=== PATIENT | male | born 2000 | race Caucasian/White ===

== ENCOUNTER 2024-06-24 09:03 | Emergency (ER) | payer BC ==
[~2024-06-24] VITALS: Ht 180.3 cm; Wt 97.0 kg
[2024-06-24 09:15] VITALS: TEMP 99.8
[2024-06-24 10:14] LABS: BASOPHILS % (AUTO) 0.5 % (0-1); EOSINOPHILS % (AUTO) 0.1 % (0-6); HEMATOCRIT 45.2 % (42.0-52.0); LYMPHOCYTES # (AUTO) 0.5 X10'3 (1.1-4.8); LYMPHOCYTES % (AUTO) 5.4 % (21-51); MEAN CORPUSCULAR HEMOGLOBIN 30.4 PG (27.0-31.0); MEAN CORPUSCULAR HGB CONC 33.3 g/dL (33.0-36.5); MEAN CORPUSCULAR VOLUME 91.4 FL (78-98); MEAN PLATELET VOLUME 10.6 FL (7.4-10.4); MONOCYTES # (AUTO) 1.6 X10'3 (0-0.9); MONOCYTES % (AUTO) 18.1 % (2-12); NEUTROPHILS # (AUTO) 6.9 X10'3 (1.8-7.7); NEUTROPHILS % (AUTO) 75.9 % (42-75); PLATELET COUNT 197 X10'3 (140-440); RED BLOOD COUNT 4.95 X10'6 (4.70-6.10); RED CELL DISTRIBUTION WIDTH 13.1 % (11.5-14.5)
[2024-06-24 10:24] LABS: ALBUMIN 3.9 G/DL (3.4-5.0); ANION GAP 15 (8-16); CALCIUM 8.9 MG/DL (8.5-10.1); CHLORIDE 96 MMOL/L (99-107); CREATININE 1.19 MG/DL (0.60-1.10); POTASSIUM 4.2 MMOL/L (3.5-5.1); SODIUM 133 MMOL/L (135-145); TOTAL CARBON DIOXIDE 21.8 MMOL/L (24-32); eCRCL 104 ML/MIN; eGFR 76 ML/MIN
[2024-06-24 10:38] LABS: BLOOD UREA NITROGEN 13 MG/DL (7-18); BUN/CREATININE RATIO 10.9 (10.0-20.0); GLUCOSE 379 MG/DL (70-104)
[2024-06-24] MEDS: normal saline 1000ml 1,000 ML IV ONE (10:59)
[2024-06-24 11:37] LABS: TOTAL CELLS COUNTED 100
[2024-06-24 11:38] LABS: LARGE PLATELETS MODERATE; PLATELET ESTIMATE NORMAL
[2024-06-24 12:15] VITALS: O2SAT 98
[2024-06-24] MEDS ORDERED: TAM75C PO (12:44)
[2024-06-24 13:11] VITALS: BP 134/74; PULSE 125; RESP 16
== END 2024-06-24 13:14 | disposition home or self-care (01) ==
LOC: ER 09:03
DX: J10.1 Influenza due to other identified influenza virus with other respiratory manifestations (principal); Z20.822 Contact with and (suspected) exposure to COVID-19; E10.65 Type 1 diabetes mellitus with hyperglycemia; Z79.4 Long term (current) use of insulin
CPT/HCPCS: 36415; 71046; 80048; 83605; 85007; 85025; 87040; 87502; 87503; 87811; 96360; 99284; J7030